=== PATIENT | female | born 1975 | race Caucasian/White ===

== ENCOUNTER 2019-12-20 12:27 | Emergency (ER) | payer OTHER ==
[~2019-12-20] VITALS: Ht 152.4 cm; Wt 72.6 kg
[2019-12-20 12:31] VITALS: BP 120/81
== END 2019-12-20 14:35 | disposition home or self-care (01) ==
LOC: ER 12:27
DX: S93.601A Unspecified sprain of right foot, initial encounter (principal); W22.8XXA Striking against or struck by other objects, initial encounter; Y93.89 Activity, other specified; Y92.89 Other specified places as the place of occurrence of the external cause; Y99.8 Other external cause status
CPT/HCPCS: 73630

== ENCOUNTER 2020-02-18 09:19 | Emergency (ER) | payer OTHER ==
[~2020-02-18] VITALS: Ht 152.4 cm; Wt 68.0 kg
[2020-02-18 10:50] VITALS: BP 154/89
== END 2020-02-18 10:57 | disposition home or self-care (01) ==
LOC: ER 09:19
DX: S63.633A Sprain of interphalangeal joint of left middle finger, initial encounter (principal); R04.0 Epistaxis; S00.532A Contusion of oral cavity, initial encounter; Y04.2XXA Assault by strike against or bumped into by another person, initial encounter; Y93.89 Activity, other specified; Y92.89 Other specified places as the place of occurrence of the external cause; Y99.8 Other external cause status
CPT/HCPCS: 73140

== ENCOUNTER 2022-05-20 12:58 | Emergency (ER) | payer OTHER ==
[~2022-05-20] VITALS: Ht 152.4 cm; Wt 72.0 kg
[2022-05-20 13:07] VITALS: BP 140/58
[2022-05-20] MEDS ORDERED: cefTRIAXone SOD 1,000 MG VL IM ONE (14:30)
[2022-05-20] MEDS ORDERED: methylPREDNISolone SOD SUCC 125 MG/2 ML VL IM ONE (14:30)
[2022-05-20] MEDS ORDERED: LIDOCAINE 1% HCL (LOCAL ANESTH.) INJ 20ML MDV ONE (14:38)
[2022-05-20] MEDS ORDERED: OSEL75CA5 PO (16:38)
== END 2022-05-20 19:28 | disposition home or self-care (01) ==
LOC: ER 12:58
DX: J10.1 Influenza due to other identified influenza virus with other respiratory manifestations (principal); Z88.8 Allergy status to other drugs, medicaments and biological substances; Z20.822 Contact with and (suspected) exposure to COVID-19
CPT/HCPCS: 36415; 87426; 87804; 96372; 99284; J0696; J2001; J2930

== ENCOUNTER 2025-06-13 18:19 | Emergency (ER) | payer OTHER ==
[~2025-06-13] VITALS: Ht 154.9 cm; Wt 62.0 kg
[~2025-06-13 18:19] MED LIST: AZITTAB PO; OSEL75CA5 PO; PRED20TA2 PO
[2025-06-13 18:20] VITALS: BP 147/80; PULSE 75; RESP 18; TEMP 98.2; O2SAT 98
--- NOTE | 2025-06-13 18:44 | ED.PDOC ---
Back pain HPI HPI Comments 49 year old female presents to ER with complaints of back pain x 1 day. 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 She rates her current pain a 8/10 diffuse to lower lumbar spine without radiation. Denies use of medications for current symptoms and presents to ER ambulatory on arrival, in mild distress. Patient also endorses intermittent numbness/tingling to fingers x 1 day, denying any neck pain. Denies extremity weakness, n/v, abdominal/pelvic pain, changes in urination/bm or any further symptoms/complaints Chief Complaint: Back Pain Time Seen by MD: 18:23 Primary Care Provider: CAROL Beltran Notes: Nurses Notes, Medications, Allergies Allergies: Coded Allergies: Prochlorperazine (Verified Allergy, Unknown, 12/20/19) Home Meds Active Scripts Prednisone (Prednisone) 20 Mg Tab, 40 MG PO DAILY for 5 Days, #5 TAB 1 Refill Prov:MYRA MCGOWAN DO 06/30/22 Azithromycin (Zithromax Z-Tyler) 250 Mg Tab, 250 MG PO DAILY for 5 Days, #6 TAB 1 Refill Prov:MYRA MCGOWAN DO 06/30/22 Oseltamivir Phosphate (Tamiflu) 75 Mg Cap, 1 CAP PO BID, #10 CAP Prov:DAVIAN SCHULER MD 05/20/22 Information Source: Patient Mode of Arrival: Ambulatory Past Medical History Past Medical History (Other): Chronic lumbar back pain x 1 year Surgical History: Denies all surgeries [employer] DES[employer]ER History: Denies all [employer] DES[employer]ER Hx Family History Family History: Unknown Social History Smoker: Non-Smoker Alcohol: Occasionally Drugs: Denies Drug Use Lives In: Home Constitutional: denies: chills, diaphoresis, fatigue, fever, malaise, sweats, weakness, others EENTM: denies: blurred vision, double vision, ear bleeding, ear discharge, ear drainage, ear pain, ear ringing, eye pain, eye redness, hearing loss, mouth pain, mouth swelling, nasal discharge, nose bleeding, nose congestion, nose pain, photophobia, tearing, throat pain, throat swelling, voice changes, others Respiratory: denies: cough, hemoptysis, orthopnea, SOB at rest, shortness of breath, SOB with excertion, stridor, wheezing, others Cardiovascular: denies: chest pain, dizzy spells, diaphoresis, Dyspnea on exertion, edema, irregular heart beat, left arm pain, lightheadedness, palpitations, PND, syncope, others Gastrointestinal: denies: abdomen distended, abdominal pain, blood streaked bowels, constipated, diarrhea, dysphagia, difficulty swallowing, hematemesis, melena, nausea, poor appetite, poor fluid intake, rectal bleeding, rectal pain, vomiting, others Genitourinary: denies: abnormal vagina bleeding, burning, dyspareunia, dysuria, flank pain, frequency, hematuria, incontinence, pain, , vagina discharge, urgency, others Neurological: reports: others (As stated in HPI) Musculoskeletal: reports: others (As stated in HPI) Integumetry: denies: bruises, change in color, change in hair/nails, dryness, laceration, lesions, lumps, rash, wounds, others Allergic/Immunocompromised: denies: Difficulty Healing, Frequent Infections, Hives, Itching, others Hematologic/Lymphatic: denies: anemia, blood clots, easy bleeding, easy bruising, swollen glands, others Endocrine: denies: excessive hunger, excessive sweating, excessive thirst, excessive urination, flushing, intolerance to cold, intolerance to heat, unexplained weight gain, unexplained weight loss, others Psychiatric: denies: anxiety, bipolar disorder, depression, hopeless, panic disorder, schizophrenia, sleepless, suicidal, others Physical Exam General Appearance: Mild Distress HEENT: PERRL/EOMI Neck: Full Range of Motion, Non-Tender, Normal Respiratory: Chest Non-Tender, Lungs Clear, No Accessory Muscle Use, No Respiratory Distress, Normal Breath Sounds Cardiovascular: No Murmur, No Gallop, Regular Rate/Rhythm Breast Exam: Deferred Gastrointestinal: Non Tender, No Pulsatile Mass, Soft Genitalia: Deferred Pelvic: Deferred Rectal: Deferred Extremities: Normal capillary refill, Normal range of motion Musculoskeletal : Extremity Location: Back (TTP centralized to lower lumbar spine and to bilateral lower lumbar paraspinals noted. No skin changes noted. Steady gait noted) Neurologic: Alert, No Motor Deficits, No Sensory Deficits Cerebellar Function: Normal Reflexes: Normal Skin: Dry, Normal Color, Warm Peripheral Pulses: 2+ dorsalis pedis (R), 2+ dorsalis pedis (L), 2+ Radial (R), 2+ Radial (L), 2+ Brachial (R), 2+ Brachial (L) Lymphatic: No Adenopathy Was a procedure done? Was a procedure done?: No Sedation Sedation?: No Back Pain Differential Dx Differential Diagnosis: Fracture, Urolithiasis, Other (neurovascular injury, UTI) X-Ray, Labs, Meds, VS Vital Signs Date Time Temp Pulse Resp B/P (MAP) Pulse Ox O2 Delivery O2 Flow Rate FiO2 06/13/25 18:20 98.2 75 18 147/80 98 98.2 Current Medications Medications (Trade) Dose Ordered Sig/Jeffrey Route Start Time Stop Time Status Last Admin Ketorolac Tromethamine (Toradol Injection) 60 mg ONCE ONCE IM 06/13/25 18:45 06/13/25 18:46 DC 06/13/25 19:05 PATIENT: KAYLIN THOMPSONCCT: [id number] UNIT: [id number] : 1975 LOC: ER ROOM / BED: / AGE / SEX: 49 / F ADM STATUS: REG ER SERVICE 183 ORDERING PHYSICIAN: LUCIANO HEREDIA PROCEDURE(s): LS2CT - LS SPINE WO CONTRAST REASON: lower lumbar back pain ORDER NUMBER(s): [id number], ACCESSION NUMBER(s): [id number] EXAM: CT LS SPINE WO CONTRAST HISTORY: lower lumbar back pain COMPARISON: None CTDIvol 24.3 mGy, DLP 907.87 mGy*cm. TECHNIQUE: Multiple axial CT images of the spine were obtained using bone algorithm. Axial and coronal reformatting was done. Bone and soft tissue windows were reviewed. FINDINGS: Mild levoconvex curvature of the lumbar spine. Vertebral body heights are maintained. Evidence of acute traumatic fractures or spondylolisthesis. Multilevel mild facet osteoarthritis with moderate to severe facet osteoarthritis at L5-S1. No significant spinal canal stenosis. No significant neural foramina stenosis. The paraspinal muscles are unremarkable. Bibasilar atelectasis. Status post cholecystectomy. Moderate to large amount of fecal material within the colon. Partially visualized abdominopelvic soft tissue structure . IMPRESSION: No evidence of acute traumatic fractures or spondylolisthesis. No significant degenerative changes of the lumbar spine. Suggested prominence of the uterus versus pelvic mass. Ultrasound of the pelvis is recommended for further evaluation. ATED BY: PREMA RUIZ DO DICTATED DATE/TIME: 06/13/251923 SIGNED BY: PREMA RUIZ DO SIGNED DATE/TIME: 06/13/251923 CC: CT lumbar spine w/o contrast reviewed Toradol 60 mg IM ordered Patient neurovascularly intact and reported improvement in symptoms prior to discharge Advised on rest/no strenuous activity Workman comp paperwork filled out Advised to f/u with PCP, workman comp PCP and gynecology in 1-2 days Patient verbalized understanding and agreeable with current plan of care Advised to return to ER immediately if symptoms worsen Images Reviewed?: Images reviewed and evaluated by me Time of 1ST Reevaluation: 18:23 Reevaluation 1ST: N/A Patient Education/Counseling: Diagnosis, Treatment, Prognosis, Need For Follow Up Family Education/Counseling: No Family Present SEPSIS Sepsis Screen Date sepsis recognized/suspect: Jun 13, 2025 Time Sepsis recognized/suspect: 1820 Recent Procedure: No On Antibiotic Therapy: No Respiratory Rate >20: No Heart Rate >90: No Temp<36 C (96.8 F) or >38.3 C: No SBP <90 or MAP <65 mmHG: No New Acute Mental Status Change: No Is the patient on CPAP, BIPAP,: No Physician Orders Ls Spine Wo Contrast (06/13/25 18:31) Vital Signs Date Time Temp Pulse Resp B/P (MAP) Pulse Ox O2 Delivery O2 Flow Rate FiO2 06/13/25 18:20 98.2 75 18 147/80 98 98.2 Medications Medications Dose Ordered Sig/Jeffrey Route Start Time Stop Time Status Last Admin Dose Admin Ketorolac Tromethamine 60 mg ONCE ONCE IM 06/13/25 18:45 06/13/25 18:46 DC 06/13/25 19:05 Departure 1 Departure Time of Disposition: 18:40 Impression: Primary Impression: Lumbar strain Qualified Codes: S39.012A - Strain of muscle, fascia and tendon of lower back, initial encounter Disposition: HOME / SELF CARE / HOMELESS Condition: Stable e-Prescriptions Cyclobenzaprine HCl (Cyclobenzaprine Hydrochlo) 5 Mg Tab 5 MG PO QHSP, #14 TAB 0 Refills Prov: LUCIANO HEREDIA 06/13/25 Ibuprofen (Ibuprofen) 800 Mg Tab 1 TAB PO TID PRN, #30 TAB 0 Refills Prov: LUCIANO HEREDIA 06/13/25 Discharged With: Self Critical Care Note Critical Care Time?: No Stability Stability form required: No Heart Score Heart Score: Heart Score Response (Comments) Value History N/A 0 EKG N/A 0 Age N/A 0 Risk Factors N/A 0 Troponin N/A 0 Total 0 LUCIANO HEREDIA Jun 13, 2025 18:44
[2025-06-13] MEDS: KETOROLAC TROMETH 60MG/2ML VIAL IM ONE (19:05)
--- NOTE | 2025-06-13 19:27 | DVH ---
EXAM: CT LS SPINE WO CONTRAST HISTORY: lower lumbar back pain COMPARISON: None CTDIvol 24.3 mGy, DLP 907.87 mGy*cm. TECHNIQUE: Multiple axial CT images of the spine were obtained using bone algorithm. Axial and coronal reformatting was done. Bone and soft tissue windows were reviewed. FINDINGS: Mild levoconvex curvature of the lumbar spine. Vertebral body heights are maintained. Evidence of acute traumatic fractures or spondylolisthesis. Multilevel mild facet osteoarthritis with moderate to severe facet osteoarthritis at L5-S1. No significant spinal canal stenosis. No significant neural foramina stenosis. The paraspinal muscles are unremarkable. Bibasilar atelectasis. Status post cholecystectomy. Moderate to large amount of fecal material within the colon. Partially visualized abdominopelvic soft tissue structure . IMPRESSION: No evidence of acute traumatic fractures or spondylolisthesis. No significant degenerative changes of the lumbar spine. Suggested prominence of the uterus versus pelvic mass. Ultrasound of the pelvis is recommended for further evaluation.
[2025-06-13] MEDS ORDERED: CYCL-614 PO (19:41)
[2025-06-13] MEDS ORDERED: IBUP-1456 PO (19:41)
== END 2025-06-13 19:46 | disposition home or self-care (01) ==
LOC: ER 18:19
DX: S39.012A Strain of muscle, fascia and tendon of lower back, initial encounter (principal); Z79.899 Other long term (current) drug therapy; X58.XXXA Exposure to other specified factors, initial encounter; Y93.89 Activity, other specified; Y92.89 Other specified places as the place of occurrence of the external cause; Y99.8 Other external cause status
CPT/HCPCS: 72131; 96372; 99285; J1885